=== PATIENT | female | born 1995 | race African-American/Black ===

== ENCOUNTER 2018-12-09 07:16 | Emergency (ER) | payer MEDICAID ==
[~2018-12-09] VITALS: Ht 157.5 cm; Wt 77.0 kg
[~2018-12-09 07:16] MED LIST: DICY10CA88 PO; NO HOME MEDS; ONDA4TAB12 PO
[2018-12-09 07:19] VITALS: BP 126/75
[2018-12-09] MEDS ORDERED: CLIN-96 PO (07:41)
== END 2018-12-09 07:48 | disposition home or self-care (01) ==
LOC: ER 07:16
DX: R22.0 Localized swelling, mass and lump, head (principal); F12.90 Cannabis use, unspecified, uncomplicated; F10.99 Alcohol use, unspecified with unspecified alcohol-induced disorder; Z79.899 Other long term (current) drug therapy; Y90.9 Presence of alcohol in blood, level not specified
CPT/HCPCS: 99283

== ENCOUNTER 2018-12-29 03:35 | Emergency (ER) | payer MEDICAID ==
[~2018-12-29] VITALS: Ht 157.5 cm; Wt 81.5 kg
[~2018-12-29 03:35] MED LIST changes: +CLIN-96 PO
[2018-12-29 04:09] LABS: CLARITY,URINE CLOUDY (Clear); COLOR,URINE YELLOW (Yellow); GLUCOSE, URINE NEGATIVE (Neg); KETONES,URINE NEGATIVE (Neg); LEUKOCYTE ESTERASE ,URINE LARGE (Neg); NITRITES, URINE NEGATIVE (Neg); OCCULT BLOOD,URINE MODERATE (Neg); PH,URINE 6.5 (4.8-8.0); PROTEIN,URINE 30 mg/dl (Neg); UA COLLECTION TYPE VOIDED
[2018-12-29 04:14] LABS: URINE HCG NEGATIVE (NEG)
[2018-12-29 04:15] LABS: BACTERIA,URINE 1+ /HPF (Neg); RBC,URINE NONE SEEN /HPF (0-2); WBC,URINE 50-100 /HPF (0-4)
[2018-12-29 04:16] LABS: MUCUS STRANDS NONE SEEN /LPF (Neg); SQUAMOUS EPITHELIAL CELL,UR FEW /LPF (FEW)
[2018-12-29] MEDS ORDERED: ondansetron/PF 4mg/2ml inj IV ONE (04:50)
[2018-12-29 05:08] LABS: BASOPHILS # (AUTO) 0.1 X10'3 (0-0.2); BASOPHILS % (AUTO) 0.6 % (0-1); EOSINOPHILS # (AUTO) 0.1 X10'3 (0-0.9); EOSINOPHILS % (AUTO) 0.8 % (0-6); HEMATOCRIT 43.1 % (35.0-45.0); HEMOGLOBIN 14.4 g/dl (12.0-16.0); LYMPHOCYTES # (AUTO) 1.3 X10'3 (1.1-4.8); LYMPHOCYTES % (AUTO) 13.8 % (21-51); MEAN CORPUSCULAR HEMOGLOBIN 28.3 PG (27.0-31.0); MEAN CORPUSCULAR HGB CONC 33.5 g/dL (33.0-36.5); MEAN CORPUSCULAR VOLUME 84.6 FL (78-98); MEAN PLATELET VOLUME 8.6 FL (7.4-10.4); MONOCYTES # (AUTO) 0.4 X10'3 (0-0.9); MONOCYTES % (AUTO) 3.6 % (2-12); NEUTROPHILS # (AUTO) 7.8 X10'3 (1.8-7.7); NEUTROPHILS % (AUTO) 81.2 % (42-75); PLATELET COUNT 315 X10'3 (140-440); WHITE BLOOD COUNT 9.6 X10'3 (4.5-11.0)
[2018-12-29 05:23] LABS: ALANINE AMINOTRANSFERASE 21 U/L (12-78); ALBUMIN 4.1 G/DL (3.4-5.0); ALKALINE PHOSPHATASE 111 IU/L (46-116); ANION GAP 8 (8-16); ASPARTATE AMINO TRANSFERASE 15 U/L (10-37); BILIRUBIN,TOTAL 0.9 MG/DL (0.1-1.0); BLOOD UREA NITROGEN 9 MG/DL (7-18); BUN/CREATININE RATIO 12.7 (6.6-38.0); CALCIUM 8.8 MG/DL (8.5-10.1); CHLORIDE 107 MMOL/L (99-107); CREATININE 0.71 MG/DL (0.40-0.90); GLUCOSE 94 MG/DL (70-104); POTASSIUM 3.7 MMOL/L (3.5-5.1); SODIUM 144 MMOL/L (135-145); TOTAL CARBON DIOXIDE 28.9 MMOL/L (24-32); TOTAL PROTEIN 8.3 G/DL (6.4-8.2); eGFR > 90 ML/MIN
[2018-12-29] MEDS ORDERED: ciprofloxacin 250mg tablet PO ONE (06:20)
[2018-12-29] MEDS ORDERED: CefTRIAXone 1000mg IM Kit (w/lidocaine diluent) IM ONE (06:20)
[2018-12-29] MEDS ORDERED: POLY17PO10 PO (06:23)
[2018-12-29] MEDS ORDERED: BISA-155 PO (06:23)
[2018-12-29] MEDS ORDERED: ONDA8TAB6 PO (06:23)
[2018-12-29] MEDS ORDERED: CIPR-259 PO (06:23)
[2018-12-29] MEDS ORDERED: ketorolac trometh. 30mg/ml inj. IV ONE (06:35)
[2018-12-29 06:52] VITALS: BP 132/65
== END 2018-12-29 06:54 | disposition home or self-care (01) ==
LOC: ER 03:35
DX: N39.0 Urinary tract infection, site not specified (principal); R11.2 Nausea with vomiting, unspecified; K59.00 Constipation, unspecified; F12.90 Cannabis use, unspecified, uncomplicated; Z79.899 Other long term (current) drug therapy
CPT/HCPCS: 36415; 80053; 81001; 81025; 85025; 87077; 87088; 87186; 96372; 96374; 96375; 99283; J0696; J1885; J2405

== ENCOUNTER 2019-09-02 08:59 | Emergency (ER) | payer MEDICAID ==
[~2019-09-02] VITALS: Ht 157.5 cm; Wt 70.3 kg
[~2019-09-02 08:59] MED LIST changes: +BISA-155 PO; -CLIN-96 PO; +CLIN-97 PO; +ONDA8TAB6 PO
[2019-09-02 09:07] VITALS: BP 119/81
[2019-09-02] MEDS ORDERED: AMOX500C2 PO (09:25)
== END 2019-09-02 09:33 | disposition home or self-care (01) ==
LOC: ER 08:59
DX: J02.9 Acute pharyngitis, unspecified (principal); H92.02 Otalgia, left ear; F12.90 Cannabis use, unspecified, uncomplicated; Z72.89 Other problems related to lifestyle; Z79.2 Long term (current) use of antibiotics; Z79.899 Other long term (current) drug therapy
CPT/HCPCS: 99283

== ENCOUNTER 2020-01-16 12:07 | Emergency (ER) | payer MEDICAID ==
[~2020-01-16] VITALS: Ht 157.5 cm; Wt 64.0 kg
[2020-01-16] MEDS ORDERED: normal saline 1000ml 1,000 ML IV ONE (17:20)
[2020-01-16] MEDS ORDERED: ondansetron/PF 4mg/2ml inj IV ONE (17:20)
[2020-01-16 18:13] LABS: BASOPHILS % (AUTO) 0.5 % (0-1); EOSINOPHILS # (AUTO) 0.1 X10'3 (0-0.9); EOSINOPHILS % (AUTO) 0.7 % (0-6); HEMATOCRIT 37.3 % (35.0-45.0); HEMOGLOBIN 12.8 g/dl (12.0-16.0); LYMPHOCYTES # (AUTO) 2.3 X10'3 (1.1-4.8); LYMPHOCYTES % (AUTO) 29.2 % (21-51); MEAN CORPUSCULAR HEMOGLOBIN 30.7 PG (27.0-31.0); MEAN CORPUSCULAR HGB CONC 34.2 g/dL (33.0-36.5); MEAN CORPUSCULAR VOLUME 89.6 FL (78-98); MONOCYTES # (AUTO) 0.6 X10'3 (0-0.9); MONOCYTES % (AUTO) 7.4 % (2-12); NEUTROPHILS # (AUTO) 4.9 X10'3 (1.8-7.7); NEUTROPHILS % (AUTO) 62.2 % (42-75); PLATELET COUNT 261 X10'3 (140-440); RED BLOOD COUNT 4.16 X10'6 (4.20-5.60); RED CELL DISTRIBUTION WIDTH 14.3 % (11.5-14.5); WHITE BLOOD COUNT 7.8 X10'3 (4.5-11.0)
[2020-01-16 18:20] LABS: ALANINE AMINOTRANSFERASE 12 U/L (12-78); ALBUMIN 3.6 G/DL (3.4-5.0); ALBUMIN/GLOBULIN RATIO 1.1 (1.1-1.5); ALKALINE PHOSPHATASE 64 IU/L (46-116); ANION GAP 11 (8-16); ASPARTATE AMINO TRANSFERASE 15 U/L (10-37); BILIRUBIN,TOTAL 0.8 MG/DL (0.1-1.0); BLOOD UREA NITROGEN 5 MG/DL (7-18); BUN/CREATININE RATIO 18.5 (6.6-38.0); CALCIUM 8.5 MG/DL (8.5-10.1); CHLORIDE 103 MMOL/L (99-107); CREATININE 0.27 MG/DL (0.40-0.90); GLUCOSE 76 MG/DL (70-104); POTASSIUM 3.2 MMOL/L (3.5-5.1); SODIUM 139 MMOL/L (135-145); TOTAL CARBON DIOXIDE 25.1 MMOL/L (24-32); eGFR > 90 ML/MIN
[2020-01-16 18:34] LABS: HCG SERUM QL POSITIVE
[2020-01-16] MEDS ORDERED: potassium Cl 20 mEq SR tablet PO ONE (18:45)
[2020-01-16] MEDS ORDERED: ONDA4TAB12 PO (18:47)
[2020-01-16 20:04] VITALS: BP 104/67
== END 2020-01-16 19:25 | disposition home or self-care (01) ==
LOC: ER 12:08
DX: O21.9 Vomiting of pregnancy, unspecified (principal); O26.891 Other specified pregnancy related conditions, first trimester; R10.84 Generalized abdominal pain; E86.0 Dehydration; O99.321 Drug use complicating pregnancy, first trimester; F12.90 Cannabis use, unspecified, uncomplicated; Z3A.08 8 weeks gestation of pregnancy; Z79.899 Other long term (current) drug therapy
CPT/HCPCS: 36415; 80053; 84703; 85025; 96361; 96374; 99283; J2405; J7030

== ENCOUNTER 2020-01-29 10:43 | Emergency (ER) | payer MEDICAID ==
[~2020-01-29] VITALS: Ht 157.5 cm; Wt 63.1 kg
[2020-01-29 11:01] VITALS: BP 104/70
[2020-01-29 11:35] LABS: BASOPHILS % (AUTO) 0.7 % (0-1); EOSINOPHILS # (AUTO) 0.1 X10'3 (0-0.9); EOSINOPHILS % (AUTO) 2.2 % (0-6); HEMATOCRIT 38.8 % (35.0-45.0); LYMPHOCYTES # (AUTO) 2.4 X10'3 (1.1-4.8); LYMPHOCYTES % (AUTO) 36.7 % (21-51); MEAN CORPUSCULAR HEMOGLOBIN 29.9 PG (27.0-31.0); MEAN CORPUSCULAR HGB CONC 33.4 g/dL (33.0-36.5); MEAN CORPUSCULAR VOLUME 89.6 FL (78-98); MONOCYTES # (AUTO) 0.5 X10'3 (0-0.9); MONOCYTES % (AUTO) 7.2 % (2-12); NEUTROPHILS # (AUTO) 3.5 X10'3 (1.8-7.7); NEUTROPHILS % (AUTO) 53.2 % (42-75); PLATELET COUNT 314 X10'3 (140-440); RED BLOOD COUNT 4.33 X10'6 (4.20-5.60); RED CELL DISTRIBUTION WIDTH 14.4 % (11.5-14.5); WHITE BLOOD COUNT 6.6 X10'3 (4.5-11.0)
[2020-01-29 11:48] LABS: ALANINE AMINOTRANSFERASE 13 U/L (12-78); ALBUMIN 3.6 G/DL (3.4-5.0); ALBUMIN/GLOBULIN RATIO 1.1 (1.1-1.5); ALKALINE PHOSPHATASE 83 IU/L (46-116); ANION GAP 8 (8-16); ASPARTATE AMINO TRANSFERASE 13 U/L (10-37); BILIRUBIN,TOTAL 0.6 MG/DL (0.1-1.0); BLOOD UREA NITROGEN 9 MG/DL (7-18); BUN/CREATININE RATIO 13.6 (6.6-38.0); CALCIUM 8.5 MG/DL (8.5-10.1); CHLORIDE 107 MMOL/L (99-107); CREATININE 0.66 MG/DL (0.40-0.90); GLUCOSE 94 MG/DL (70-104); POTASSIUM 4.1 MMOL/L (3.5-5.1); SODIUM 142 MMOL/L (135-145); TOTAL CARBON DIOXIDE 27.4 MMOL/L (24-32); eGFR > 90 ML/MIN
== END 2020-01-29 12:31 | disposition home or self-care (01) ==
LOC: ER 10:43
DX: N92.0 Excessive and frequent menstruation with regular cycle (principal); R10.84 Generalized abdominal pain; F17.200 Nicotine dependence, unspecified, uncomplicated; F12.90 Cannabis use, unspecified, uncomplicated; Z98.890 Other specified postprocedural states; Z72.89 Other problems related to lifestyle; Z79.2 Long term (current) use of antibiotics; Z79.899 Other long term (current) drug therapy
CPT/HCPCS: 36415; 80053; 85025; 99283

== ENCOUNTER 2023-09-19 12:42 | Outpatient (CLI) | payer MEDICAID | END 2023-09-19 23:59 | disposition home or self-care (01) | LOC: RAD 12:42 | PROVIDERS: ATTEND Nurse Practitioner Primary Care | DX: M25.562 Pain in left knee (principal); E66.09 Other obesity due to excess calories; M22.2X9 Patellofemoral disorders, unspecified knee | CPT/HCPCS: 73564 ==